=== PATIENT | female | born 1975 | race Caucasian/White ===

== ENCOUNTER 2017-05-12 03:55 | Emergency (ER) | payer BC ==
[2017-05-12] MEDS: Sodium Chloride 0.9% 5 ML Syringe FLUSH PRN ×2 (04:10→04:15)
[2017-05-12] MEDS ORDERED: diphenhydrAMINE 50 MG/ML SDV ONE (04:13)
[2017-05-12] MEDS ORDERED: methylPREDNISolone Sodium Succinate 125 MG/2 ML SDV ONE (04:14)
[2017-05-12] MEDS ORDERED: Famotidine 20 MG/2 ML SDV IVPUSH ONE (04:23)
[2017-05-12 04:32] VITALS: BP 144/88
--- NOTE | 2017-05-12 04:33 | EDM.PDOC ---
ED HPI GENERAL MEDICAL PROBLEM - General Chief Complaint: Allergic Reaction Stated Complaint: ALLERGIC REACTION Time Seen by Provider: 05/12/17 04:15 Source of Information: Reports: Patient History Limitations: Reports: No Limitations - History of Present Illness INITIAL COMMENTS - FREE TEXT/NARRATIVE: 41 YO WF presents to ER complaining of itchy rash with hives which began yesterday am. Pt denies any shortness of breath, dizziness or dysphasia. Pt states she took Benadryl all day for the itching but became concerned when she woke this am with some swelling to her face with sparing of her lips and mouth. Pt reports recently finishing a course of cipro and flagyl for diverticulitis ( finishes 05/09/17). Pt has had similar reactions to strawberries but denies any recent exposure. Onset Date: 05/11/17 Onset Time: 09:00 Duration: Day(s): (2) Location: Reports: Generalized Severity: Mild Improves with: Reports: Medication Worsens with: Reports: None Associated Symptoms: Reports: No Other Symptoms, Rash. Denies: Chest Pain, Diaphoresis, Shortness of Breath, Syncope, Weakness - Related Data Allergies Allergy/AdvReac Type Severity Reaction Status Date / Time strawberry Allergy Anaphylactic Verified 05/12/17 04:06 Shock Home Meds: Home Meds Famotidine [Pepcid] 20 mg PO BID #20 tablet 05/12/17 [Rx] Mv-Min/Iron/Folic/Calcium/Vitk [Women's Daily Formula Tablet] 1 tab PO DAILY [History] Omeprazole 20 mg PO DAILY 05/12/17 [History] Sertraline HCl [Zoloft] 100 mg PO DAILY 05/12/17 [History] predniSONE 20 mg PO WITHBREAKFAST #15 tablet 05/12/17 [Rx] ED ROS ALLERGIC REACTION - Review of Systems Review Of Systems: See Below Constitutional: Reports: No Symptoms HEENT: Reports: No Symptoms Respiratory: Reports: No Symptoms Cardiovascular: Reports: No Symptoms Endocrine: Reports: No Symptoms GI/Abdominal: Reports: No Symptoms : Reports: No Symptoms Musculoskeletal: Reports: No Symptoms Skin: Reports: Pruritis, Rash (urticarial) Neurological: Reports: No Symptoms Psychiatric: Reports: No Symptoms Hematologic/Lymphatic: Reports: No Symptoms Immunologic: Reports: No Symptoms ED EXAM GENERAL NO PERIP PULSE - Physical Exam Exam: See Below Exam Limited By: No Limitations General Appearance: Alert, WD/WN, No Apparent Distress Nose: Normal Inspection, Normal Mucosa, No Blood Throat/Mouth: Normal Inspection, Normal Lips, Normal Teeth, Normal Gums, Normal Oropharynx, Normal Voice, No Airway Compromise Head: Atraumatic, Normocephalic Neck: Normal Inspection, Supple, Non-Tender, Full Range of Motion Respiratory/Chest: No Respiratory Distress, Lungs Clear, Normal Breath Sounds, No Accessory Muscle Use, Chest Non-Tender Cardiovascular: Normal Peripheral Pulses, Regular Rate, Rhythm, No Edema, No Gallop, No JVD, No Murmur, No Rub GI/Abdominal: Normal Bowel Sounds, Soft, Non-Tender, No Organomegaly, No Distention, No Abnormal Bruit, No Mass Back Exam: Normal Inspection, Full Range of Motion, NT Extremities: Normal Inspection, Normal Range of Motion, Non-Tender, Normal Capillary Refill, No Pedal Edema Neurological: Alert, Oriented, CN II-XII Intact, Normal Cognition, Normal Gait, Normal Reflexes, No Motor/Sensory Deficits Psychiatric: Normal Affect, Normal Mood Skin Exam: Rash (uriticarial rash with mild swelling to face and eyelids) Lymphatic: No Adenopathy Course - Orders/Labs/Meds Orders: Active Orders 24 hr Category Date Time Status Famotidine [Pepcid] Med 05/12/17 04:23 Once 20 mg IVPUSH ONETIME ONE Sodium Chloride 0.9% [Syrex Flush] Med 05/12/17 04:10 Ordered 5 ml FLUSH Q8HR PRN Saline Lock Insert [OM.PC] Routine Oth 05/12/17 04:10 Ordered Meds: Medications Discontinued Medications Generic Name Dose Route Start Last Admin Trade Name Freq PRN Reason Stop Dose Admin Diphenhydramine HCl Confirm 05/12/17 04:13 05/12/17 04:22 Benadryl Administered 05/12/17 04:14 25 mg Dose Administration 50 mg .ROUTE .STK-MED ONE Methylprednisolone Sodium Succinate Confirm 05/12/17 04:14 05/12/17 04:15 Solu-Medrol Administered 05/12/17 04:15 125 mg Dose Administration 125 mg .ROUTE .STK-MED ONE Departure - Departure Time of Disposition: 04:36 Disposition: Home, Self-Care 01 Condition: Good Clinical Impression: Allergic reaction Qualifiers: Encounter type: initial encounter Qualified Code(s): T78.40XA - Allergy, unspecified, initial encounter - Discharge Information Prescriptions: Famotidine [Pepcid] 20 mg PO BID #20 tablet predniSONE 20 mg PO WITHBREAKFAST #15 tablet Instructions: Hives, Allergies Referrals: Bhavani Max, [facility] [Primary Care Provider] - Forms: ED Department Discharge - My Orders Last 24 Hours: My Active Orders 05/12/17 04:10 Sodium Chloride 0.9% [Syrex Flush] 5 ml FLUSH Q8HR PRN Saline Lock Insert [OM.PC] Routine 05/12/17 04:23 Famotidine [Pepcid] 20 mg IVPUSH ONETIME ONE - Assessment/Plan Last 24 Hours: My Active Orders 05/12/17 04:10 Sodium Chloride 0.9% [Syrex Flush] 5 ml FLUSH Q8HR PRN Saline Lock Insert [OM.PC] Routine 05/12/17 04:23 Famotidine [Pepcid] 20 mg IVPUSH ONETIME ONE Assessment:: 1. allergic reaction Plan: 1. discharge home 2. benadryl 50mg PO Q6 3. pepcid 20mg PO BID 4. prednisone 60mg PO QD 5. follow up with clinic for further management and treatment 6. return to ER for worsening symptoms
[2017-05-12] MEDS ORDERED: diphenhydrAMINE 50 MG/ML SDV IVPUSH ONE (04:42)
[2017-05-12] MEDS ORDERED: methylPREDNISolone Sodium Succinate 125 MG/2 ML SDV IVPUSH ONE (04:42)
== END 2017-05-12 04:58 | disposition home or self-care (01) ==
LOC: KA.ED 03:55
DX: T78.40XA Allergy, unspecified, initial encounter (principal); Z91.018 Allergy to other foods; Z79.899 Other long term (current) drug therapy
CPT/HCPCS: 96374; 96375; 99283; J1200; J2930; S0028